=== PATIENT | male | born 1980 | race Caucasian/White ===

== ENCOUNTER 2016-11-01 02:01 | Emergency (ER) | payer OTHER ==
[~2016-11-01 02:01] MED LIST: FLOMAX0.4 M1 PO; FLOMAX0.4 MG PO; NO MEDICATIONS; PERCOCET5/325 PO; PHENERGAN25 MG PO; VICODIN 5/500 T1 TAB PO; VOLTAREN75 MG PO
[2016-11-01] MEDS ORDERED: METFORMIN HCL1000 M2 PO (02:10)
== END 2016-11-01 04:00 | disposition home or self-care (01) ==
LOC: SED 02:01
DX: T40.2X1A Poisoning by other opioids, accidental (unintentional), initial encounter (principal); F17.210 Nicotine dependence, cigarettes, uncomplicated; Z79.899 Other long term (current) drug therapy
CPT/HCPCS: 99284